=== PATIENT | female | born 1970 | race African-American/Black ===

== ENCOUNTER 2016-08-09 18:14 | Emergency (ER) | payer SELFPAY ==
[~2016-08-09 18:14] MED LIST: ACETAMINOPHEN; ACYCLOVIR PO; BENADRYL25 M3 PO; ELIMITE60 G1 TOP; ELIMITE60 GM TOP; FLAGYL PO; FLEXERIL10 MG PO; HCTZ PO; HYDROCHLOROTHIA25 MG PO; LORTAB 5/500 TA1 TA2 PO; MEDROL DOSEPAK4 MG PO; NAPROSYN500 MG PO; NIX59 ML TOP; NORCO1 TAB 10/3 PO; NORVASC PO; NORVASC10 MG PO; PEN-VEE K PO; PORTLAND PHARMACY; PREDNISONE PO; PRINIVIL40 MG PO; VICODIN 5/1 TAB 5/50 PO
== END 2016-08-09 18:22 | disposition home or self-care (01) ==
LOC: SED 18:14
DX: B86 Scabies (principal); I10 Essential (primary) hypertension; F17.200 Nicotine dependence, unspecified, uncomplicated; Z79.899 Other long term (current) drug therapy
CPT/HCPCS: 99282